=== PATIENT | male | born 1990 | race Caucasian/White ===

== ENCOUNTER 2017-08-21 11:32 | Emergency (ER) | payer OTHER ==
[~2017-08-21] VITALS: Ht 177.8 cm; Wt 99.7 kg
[~2017-08-21 11:32] MED LIST: CALC500C3 PO; IBUP-103 PO; LORA-741 PO; OMEP40CA PO
[2017-08-21 11:37] VITALS: TEMP 36.7; Ht 177.8 cm; Wt 99.7 kg
[2017-08-21 12:12] LABS: BASO % 0.8 %; BASO ABS # 0.05 K/uL (0-0.2); EOS % 1.8 %; EOS ABS # 0.11 K/uL (0-0.5); HEMATOCRIT 45.5 % (42-52); HEMOGLOBIN 16.7 g/dL (14.0-18.0); IG# 0.01 K/uL (0.00-0.02); LYMPH ABS # 2.73 K/uL (1.2-3.4); MEAN CELL VOLUME 89.7 fL (80-100); MEAN CORPUSCULAR HEMOGLOBIN 32.9 pg (25-34); MEAN CORPUSCULAR HGB CONC 36.7 g/dl (32-36); MEAN PLATELET VOLUME 9.9 fL (7.4-10.4); MONO % 10.4 %; MONO ABS # 0.63 K/uL (0.11-0.59); NEUT % 41.8 %; NEUT ABS # 2.53 K/uL (1.4-6.5); PLATELET COUNT 248 K/uL (130-400); RED CELL DISTRIBUTION WIDTH CV 12.1 % (11.5-14.5); RED CELL DISTRIBUTION WIDTH SD 39.4 fL (36.4-46.3); WHITE BLOOD COUNT 6.06 K/uL (4.8-10.8)
--- NOTE | 2017-08-21 12:24 | DIAGNOSTIC IMAGING REPORT ---
CHEST ONE VIEW PORTABLE CLINICAL HISTORY: CHEST PAIN dyspnea COMPARISON STUDY: 06/27/2016 FINDINGS: The bones soft tissues and hemidiaphragms are normal. The cardiomediastinal silhouette is normal. The lungs are clear. The pulmonary vasculature is normal. Old healed fracture right clavicle unchanged from the prior study. IMPRESSION: Negative chest. The above report was generated using voice recognition software. It may contain grammatical, syntax or spelling errors. Electronically signed by: [place] M.D. 08/21/2017 12:23 PM Dictated Date/Time: 08/21/2017 12:22 PM
[2017-08-21 12:32] LABS: ALBUMIN 4.4 gm/dl (3.4-5.0); CALCIUM 10.6 mg/dl (8.5-10.1); CREATININE 1.04 mg/dl (0.60-1.40); POTASSIUM 3.7 mmol/L (3.5-5.1)
[2017-08-21 12:34] LABS: TOTAL PROTEIN 8.4 gm/dl (6.4-8.2)
[2017-08-21 13:44] VITALS: BP 146/87; PULSE 62; O2SAT 99
--- NOTE | 2017-08-21 17:08 | EMERGENCY ROOM VISIT NOTE ---
ED Visit Note First contact with patient: 11:47 Chief Complaint: Chest pain History of Present Illness: Mr. Cooper is a 27 year-old white male who ambulates into the ED complaining of left-sided chest pain. Historically patient reports patient has a history of spontaneous pneumothorax and is status post bleb resection. Patient reports a gradual onset of left-sided pain that started 7 days ago. Since that time the pain has been constant but has waxed and waned in intensity. The pain is currently described as sharp and is placed just inferior to the left nipple. The pain is radiating around the chest wall and into the thoracic back. He has not identified any aggravating or alleviating factors related to the pain. Been taken ibuprofen without relief of his discomfort. He denies any associated symptoms the pain including trauma, fevers , chills, sweats, skin eruptions, skin color changes, upper respiratory tract symptoms, wheezing, cough shortness of breath, orthopnea, dependent edema, previous clots, claudication, cramping, recent surgery/inactivity/extended travel, abdominal pain, nausea, vomiting, diarrhea, constipation, rectal bleeding, black/tarry stools, urinary symptoms, back/flank pain. Review of Systems: As noted above in history of present illness. All body systems were reviewed and found to be negative as noted above. Past Medical History: As previously noted. Current Medications: Prilosec, Ativan, Tums and ibuprofen. Allergies to Medications: Cefaclor. Social History: Patient is currently employed; he feels safe in his home environment; he denies tobacco use admits alcohol use. Physical Examination: Vital Signs: Date Time Temp Pulse Resp B/P (MAP) Pulse Ox O2 Delivery O2 Flow Rate FiO2 08/21/17 13:44 62 18 146/87 99 Room Air 08/21/17 13:01 68 18 163/91 100 Room Air 08/21/17 12:05 63 08/21/17 11:56 100 Room Air 08/21/17 11:37 36.7 73 20 162/87 100 Room Air GENERAL: 27-year-old male in mild distress due to pain, nontoxic-appearing, afebrile and hemodynamically stable. NEUROLOGICAL: Awake, alert and oriented to person, place and time. Answering questions appropriately and following commands. Normal gait. Good hand eye coordination. SKIN: Warm, dry and pink. No soft tissue eruptions or trauma noted. HEENT: Atraumatic and normocephalic. PERRLA. Sclera white and conjunctiva pink. Oral cavity moist and pink. Pharynx is nonerythematous or edematous. Speech normal. No lymphadenopathy. Trachea midline. No jugular venous distention. Carotid bruits. BACK: No tenderness over the bony spine. No CVA tenderness. THORAX: Lungs sounds are clear to auscultation and equal bilaterally with symmetrical chest wall. No wheezing, rales or rhonchi. No crepitus, tenderness , subcutaneous air or deformities noted. HEART: Regular rate and rhythm. No gallops, rubs or murmurs are appreciated. No lifts, heaves or thrills. PMI is not displaced. ABDOMEN: Flat, soft and nontender. Positive bowel sounds in all quadrants. No guarding, rigidity or organomegaly. EXTREMITIES: Moves all extremities well on command and with purpose. All distal neurovascular statuses are intact and equal bilaterally. No dependent edema or calf tenderness/cords. ED Course: Patient is assessed as noted above. Laboratory Testing: Test 08/21/17 11:55 08/21/17 12:02 Range/Units White Blood Count 6.06 4.8-10.8 K/uL Red Blood Count 5.07 4.7-6.1 M/uL Hemoglobin 16.7 14.0-18.0 g/dL Hematocrit 45.5 42-52 % Mean Corpuscular Volume 89.7 80-100 fL Mean Corpuscular Hemoglobin 32.9 25-34 pg Mean Corpuscular Hemoglobin Concent 36.7 32-36 g/dl Platelet Count 248 130-400 K/uL Mean Platelet Volume 9.9 7.4-10.4 fL Neutrophils (%) (Auto) 41.8 % Lymphocytes (%) (Auto) 45.0 % Monocytes (%) (Auto) 10.4 % Eosinophils (%) (Auto) 1.8 % Basophils (%) (Auto) 0.8 % Neutrophils # (Auto) 2.53 1.4-6.5 K/uL Lymphocytes # (Auto) 2.73 1.2-3.4 K/uL Monocytes # (Auto) 0.63 0.11-0.59 K/uL Eosinophils # (Auto) 0.11 0-0.5 K/uL Basophils # (Auto) 0.05 0-0.2 K/uL RDW Standard Deviation 39.4 36.4-46.3 fL RDW Coefficient of Variation 12.1 11.5-14.5 % Immature Granulocyte % (Auto) 0.2 % Immature Granulocyte # (Auto) 0.01 0.00-0.02 K/uL Sodium Level 135 136-145 mmol/L Potassium Level 3.7 3.5-5.1 mmol/L Chloride Level 101 98-107 mmol/L Carbon Dioxide Level 27 21-32 mmol/L Anion Gap 7.0 3-11 mmol/L Blood Urea Nitrogen 17 7-18 mg/dl Creatinine 1.04 0.60-1.40 mg/dl Est Creatinine Clear Calc Drug Dose 126.3 ml/min Estimated GFR () 113.5 Estimated GFR (Non- 97.9 BUN/Creatinine Ratio 16.7 10-20 Random Glucose 101 70-99 mg/dl Calcium Level 10.6 8.5-10.1 mg/dl Total Bilirubin 0.5 0.2-1 mg/dl Direct Bilirubin 0.1 0-0.2 mg/dl Aspartate Amino Transf (AST/SGOT) 43 15-37 U/L Alanine Aminotransferase (ALT/SGPT) 60 12-78 U/L Alkaline Phosphatase 74 45-117 U/L Total Protein 8.4 6.4-8.2 gm/dl Albumin 4.4 3.4-5.0 gm/dl Lipase 192 73-393 U/L Bedside Troponin I < 0.030 0-0.045 ng/ml Chest X-Rays: Were read by myself and shows no acute infiltrates, effusions or pneumothorax. Normal heart silhouette and bony anatomy. EKG: Was read by myself and reviewed with Dr. Lopez; show normal sinus rhythm with ventricular rate of 66 bpm. Normal intervals and complexes. No acute ST changes indicating ischemia, injury or infarction. Patient has inversion T waves in lead III only and improve R-wave progression in the lateral leads when compared to previous from May 2016. An IV lock was initiated; patient was offered pain medication and refused. Patient was reassessed multiple times during his stay in the emergency department. Patient's case was reviewed with Dr. Lopez; we agreed on diagnostic approach, treatment, disposition and plan. Patient was educated about today's findings and instructed on his treatment plan ; he verbalized understanding and agreement with this plan Clinical Impression: Left-sided chest pain. Decision-Making: Hazel my differential diagnosis I considered rib contusion, rib fracture, pneumothorax, pulmonary embolism, acute coronary syndrome, pneumonia and other causes. Disposition: Patient discharged home in stable condition; prior to departure he was reassessed and subjectively reported that he was pain and symptom-free. Plan: Patient was encouraged alternate ibuprofen and acetaminophen every 3 hours as needed for pain. Patient is encouraged to continue his other medications as prescribed. Patient is encouraged to use ice and heat as we discussed 5-6 times a day for 30 minutes. Patient was encouraged to follow-up with family physician for recheck. Patient was encouraged to return the ED for worsening/uncontrolled pain, fevers , shortness of breath, wheezing or any new/concerning symptoms.
== END 2017-08-21 13:57 | disposition home or self-care (01) ==
LOC: C.EDB 11:34 → C.EDC 13:57
DX: R07.9 Chest pain, unspecified (principal); Z79.899 Other long term (current) drug therapy